=== PATIENT | female | born 1980 | race Caucasian/White ===

== ENCOUNTER 2024-02-01 20:42 | Emergency (ER) | payer OTHER, SELFPAY ==
[2024-02-01 20:50] VITALS: BP 132/92
--- NOTE | 2024-02-01 21:07 | ED.GENMED ---
History of Present Illness
General
Chief Complaint: Skin Problem
Time Seen by Provider: 02/01/24 21:01
Travel History
Have you had any contact with someone who has COVID-19?: No
Do you have any symptoms of coronavirus? Fever > 100 degrees, chills, cough, shortness of breath, sore throat, loss of taste or smell, muscle aches, or headache?: No
History of Present Illness
History of Present Illness:
43-year-old female presents to the emergency department for evaluation of multiple dog bites to the left thigh, left hand, and right forearm. She was attacked by neighbors dog. The dog is up-to-date on rabies vaccinations. Patient does not know
her last tetanus status.
Past History
Past History
ED Past Medical History: Other (Kidney stones, ITP)
ED Past Surgical History: and Urological
Social History
Tobacco: Non-smoker
Alcohol: None
Drug: None
Personal:
Living: with family
Review of Systems
Review of Systems
Allergies reviewed?: Yes
All Other Systems: ROS reviewed and negative except as documented in HPI and ROS
Phy Exam
Physical Exam
Physical Exam:
GEN: Well appearing, NAD, WDWN
HEENT: Oral mucosa moist, no scleral icterus
Cardiac: Regular rate
Lung: No respiratory distress, no tachypnea
MSK: No gross deformity or injuries
Skin: Good color, no pallor or jaundice, no rashes. Abrasion with ecchymosis to the right ulnar forearm, no bleeding. Superficial wound to the right fifth finger with no active bleeding. Multiple puncture wounds and abrasions of varying degrees
to the left anterior thigh with scant active bleeding
Neuro: AO x3, moves all extremities freely
Psych: Calm, cooperative
Course
Orders/Labs/Results
Orders:
Orders
02/01/24 21:07
Tetanus/Diphth/Acelpertussis [Adacel] 0.5 ml IM .ONCE ONE
02/01/24 21:08
Amoxicillin 875 mg/Clav 125 mg [Augmentin 875 mg/125 mg] 1 tablet PO NOW STA
Vital Signs
Initial and Last Documented VS:
Initial Vital Signs
Temp Pulse Resp BP Pulse Ox
98.3 F 78 20 132/92 99
02/01/24 20:50 02/01/24 20:50 02/01/24 20:50 02/01/24 20:50 02/01/24 20:50
Last Documented Vital Signs
Temp Pulse Resp BP Pulse Ox
98.3 F 65 20 120/74 98
02/01/24 20:50 02/01/24 21:46 02/01/24 21:46 02/01/24 21:46 02/01/24 22:02
MDM/Problems Addressed
MDM/Problems Addressed:
Wounds irrigated copiously and dressed in the emergency department. No indication for primary closure. Will treat with prophylactic antibiotics, tetanus updated
*Critical Care Note
Total Time (30-74mins, 75-104mins- exclusive of procedures): Not Applicable
ED Attending Note
-
Portions of this chart may have been created with voice recognition software.� Occasional wrong word or��sound alike� substitutions may have occurred due to the inherent limitations of voice recognition software.
Discharge Plan
Departure
Patient Disposition: Home (Routine Discharge)
Date of Disposition: 02/01/24
Time of Disposition: 21:07
Patient with high blood pressure during this ER visit?: No
Discharge Problem:
Dog bite of multiple sites
Instructions: Animal Bites ED
Prescriptions:
New
amoxicillin-pot clavulanate 875-125 mg tablet
1 tab PO BID 3 Days Qty: 6 0RF
No Action
alprazolam 0.5 MG tablet
0.5 mg PO Q6HPRN PRN (Reason: anxiety)
multivitamin with folic acid [Tab-A-Kristie] 1 TABLET tablet
1 tab PO DAILY
acetaminophen-codeine 300-30 mg Tablet
1 tab PO Q4HPRN PRN (Reason: pain) Qty: 7 0RF
Interventions
Interventions:
*Risk Screen - Suicide Last Done: 02/01/24 20:50
*General Assessment Last Done: 02/01/24 20:50
*Neglect/Abuse Screening Last Done: 02/01/24 20:50
ED- Fall Risk Assessment Last Done: 02/01/24 21:56
*ED COVID-19 Vaccine History Last Done: 02/01/24 22:02
*Nursing Disposition Last Done: 02/01/24 22:02
ED-Skin Assessment Last Done: 02/01/24 21:50
Discharge Date and Time
Discharge Date/Time: 02/01/24 22:04
Print Language: KOREAN
[2024-02-01] MEDS: ADACEL 0.5 ML IM (21:33)
[2024-02-01] MEDS: AUGMENTIN 875 MG/125 MG 1 TABLET PO (21:33)
[2024-02-01 21:46] VITALS: BP 120/74
== END 2024-02-01 22:04 | disposition home or self-care (01) ==
LOC: EMR 20:42
PROVIDERS: EMERGENCY PHYSICIAN Emergency Medicine; FAMILY PHYSICIAN Internal Medicine
DX: S71.152A Open bite, left thigh, initial encounter (principal); S71.132A Puncture wound without foreign body, left thigh, initial encounter; S50.11XA Contusion of right forearm, initial encounter; S50.811A Abrasion of right forearm, initial encounter; S70.312A Abrasion, left thigh, initial encounter; S60.946A Unspecified superficial injury of right little finger, initial encounter; W54.0XXA Bitten by dog, initial encounter; Z23 Encounter for immunization; D69.3 Immune thrombocytopenic purpura; Z87.442 Personal history of urinary calculi
CPT/HCPCS: 99283; 90471; 90715

== ENCOUNTER 2024-09-19 11:21 | Emergency (ER) | payer OTHER, SELFPAY ==
[2024-09-19 11:35] VITALS: BP 152/74
--- NOTE | 2024-09-19 11:43 | EDRN ---
Vinh PHAN in room w/pt at this time.
[2024-09-19] MEDS: ZOFRAN 4 MG IV (11:56)
[2024-09-19] MEDS: TORADOL 15 MG IV (11:58)
[2024-09-19] MEDS: TORADOL 15 MG IM (11:58)
[2024-09-19] MEDS: NSS 1000 IV (12:00)
--- NOTE | 2024-09-19 12:04 | EDRN ---
Pt attempting urine spec in BR at this time.
[2024-09-19 12:09] LABS: % Basophils 0.2 % (0-2); % Eosinophils 0.4 % (0-6); % Immature Granulocytes 0.5 % (0-0.5); % Lymphocytes 12.4 % (20.5-51.1); % Monocytes 6.9 % (1.7-9.3); % Neutrophils 79.6 % (42.2-75.2); Absolute Eosinophils 0.1 10^3/uL (0-0.7); Absolute Immature Granulocytes 0.1 10^3/uL (0-0.05); Absolute Lymphocytes 1.5 10^3/uL (1.2-3.4); Absolute Monocytes 0.9 10^3/uL (0.1-0.6); Absolute Neutrophils 9.8 10^3/uL (1.4-6.5); Hematocrit 40.6 % (37.0-47.0); Hemoglobin 13.6 g/dL (12.0-16.0); Mean Corp Hgb Conc. 33.5 g/dL (33.0-37.0); Mean Corpuscular Hgb 31.4 pg (27.0-31.0); Mean Corpuscular Volume 93.8 fL (81.0-99.0); Mean Platelet Volume 10.1 fL (7.4-10.4); Nucleated Red Blood Cells % 0 %; Platelet Count 149 10^3/uL (130-400); Red Blood Cell Count 4.33 10^6/uL (4.20-5.40); Red Cell Dist. Width 12.1 % (11.5-14.5); White Blood Cell Count 12.3 10^3/uL (4.8-10.8)
--- NOTE | 2024-09-19 12:16 | ED.GENMED ---
History of Present Illness
General
Chief Complaint: Flank Pain
Source: patient
Exam Limitations: none
Time Seen by Provider: 09/19/24 11:42
Nursing documentation reviewed up to this point in time: agreed with
History of Present Illness
History of Present Illness:
43-year-old female with history of kidney stones presents with left flank pain 05/03 that started around 9 AM today. She is nauseous but has not vomited. She denies fever or chills.
Past History
Past History
ED Past Medical History: Other (Kidney stones, ITP)
ED Past Surgical History: and Urological
Social History
Tobacco: Non-smoker
Alcohol: None
Drug: None
Personal:
Living: with family
Review of Systems
Review of Systems
Allergies reviewed?: Yes
All Other Systems: ROS reviewed and negative except as documented in HPI and ROS
Constitutional: Denies fever or chills
Respiratory: Denies trouble breathing
Cardiac: Denies chest pain
ABD/GI: Reports nausea; Denies abdominal pain, vomiting, diarrhea, bloody stools or black stools
: Reports flank pain (left); Denies dysuria, frequency or difficulty voiding
Musculoskeletal: Reports no symptoms
Skin: Reports no symptoms
Neurological: Reports no symptoms
Phy Exam
Physical Exam
Physical Exam:
GENERAL: Mild acute distress due to pain. A&Ox3.
CONSTITUTIONAL: Afebrile.
EYES: clear, conjunctivae normal
ENMT: moist mucus membranes, Pharynx nl
RESPIRATORY: Regular respirations, nonlabored, lungs clear.
CARDIOVASCULAR: Regular rate and rhythm, no murmurs, no rubs.
GI: Soft, nontender, normal BS. Left flank tender to percussion
MUSCULOSKELETAL: Moves with ease. Well perfused.
SKIN: Warm, dry, pink
PSYCH: Anxious mood and affect. Well kept, interactive and appropriate
NEUROLOGIC: Awake, alert and oriented. No focal neurological deficits
Course
Orders/Labs/Results
Orders:
Orders
09/19/24 11:44
CT Abd/pel Without Iv Or Oral Urgent
Comment:
Reason For Exam: L flank pain
0.9% Sodium Chloride 1000 ml [Nss] 1,000 ml IV BOLUS
Ketorolac [Toradol] 15 mg IM NOW STA
Ondansetron Injectable [Zofran] 4 mg IV NOW STA
Test Result ONCE
09/19/24 12:01
Complete Blood Count/With Diff Urgent
Comprehensive Metabolic Panel Urgent
HCG, Serum Qualitative Screen Urgent
09/19/24 12:13
Urinalysis Reflex To Culture Urgent
Date Specimen was Collected: 09/19/24
Time Specimen was Collected: 12:12
Urine Microscopic Reflex Cult Urgent
09/19/24 12:16
HYDROmorphone [Dilaudid] 1 mg IV NOW STA
09/19/24 12:17
HYDROmorphone [Dilaudid] 1 mg .ROUTE .STK-MED ONE
09/19/24 12:21
IV Insert/Care/Rem.- Treatment PRN
Ketorolac [Toradol] 15 mg IV NOW STA
09/19/24 14:59
Tamsulosin [Flomax] 0.4 mg PO NOW STA
09/19/24 15:14
HYDROmorphone [Dilaudid] 1 mg .ROUTE .STK-MED ONE
09/19/24 15:15
HYDROmorphone [Dilaudid] 1 mg IV NOW STA
Abnormal Lab Results
09/19/24 09/19/24
12:01 12:13
WBC 12.3 H 10^3/uL
(4.8-10.8)
MCH 31.4 H pg
(27.0-31.0)
Abs Immat Gran (auto) 0.1 H 10^3/uL
(0-0.05)
Absolute Neuts (auto) 9.8 H 10^3/uL
(1.4-6.5)
Absolute Monos (auto) 0.9 H 10^3/uL
(0.1-0.6)
Neutrophils % 79.6 H %
(42.2-75.2)
Lymphocytes % 12.4 L %
(20.5-51.1)
BUN 18 H mg/dl
(7-17)
Glucose 142 H mg/dl
(70-99)
Ur Occult Blood Reflex 1+ A
(Negative)
Leukocyte Esterase Rfl Trace A
(Negative)
Urine Bacteria (Reflex) Few A
(Negative)
09/19/24 12:01
09/19/24 12:01
Vital Signs
Initial and Last Documented VS:
Initial Vital Signs
Temp Pulse Resp BP Pulse Ox
98.3 F 76 16 152/74 98
09/19/24 11:35 09/19/24 11:35 09/19/24 11:35 09/19/24 11:35 09/19/24 11:35
Last Documented Vital Signs
Temp Pulse Resp BP Pulse Ox
98.3 F 65 16 131/60 100
09/19/24 11:35 09/19/24 16:38 09/19/24 16:38 09/19/24 16:38 09/19/24 16:38
MDM/Problems Addressed
Differential Diagnosis Includes:
Kidney/ureteral stone, UTI, pyelonephritis
MDM/Problems Addressed:
43-year-old female with history of kidney stones presents with left flank pain 05/03 that started around 9 AM today. She is nauseous but has not vomited. She denies fever or chills.
Afebrile, moderate distress due to pain
12:15 PM:
CBC: WBC 12.3
CMP Normal
HCG neg
U/A: no sign of infection.
1:30 PM:
Patient is comfortable after pain medication. Awaiting CT scan
3:00 p[address]
CAT scan abdomen pelvis radiology report read: IMPRESSION: Column of stones in the distal left ureter causing moderate left hydronephrosis and moderate hydroureter. New.
Additional tiny nonobstructing bilateral renal stones.
Small simple left ovarian cyst. New.
Hypodense hepatic lesion possibly a hemangioma. Nonurgent abdominal ultrasound recommended.
Pt states pain is worsening, now 6/10, Flomax given, re medicated.
4:45 p.m.
Pt feeling better, wants to go home
Rx for pain med and Flomax sent to her pharmacy
*Critical Care Note
Total Time (30-74mins, 75-104mins- exclusive of procedures): Not Applicable
ED Attending Note
-
Portions of this chart may have been created with voice recognition software.� Occasional wrong word or��sound alike� substitutions may have occurred due to the inherent limitations of voice recognition software.
Discharge Plan
Departure
Patient Disposition: Home (Routine Discharge)
Date of Disposition: 09/19/24
Time of Disposition: 16:42
Patient with high blood pressure during this ER visit?: No
Condition: Good
Discharge Problem:
Kidney stone
Instructions: Kidney Stones (DC), How to Strain Your Urine, Narcotic Pain Medication
Prescriptions:
New
hydrocodone-acetaminophen 5-325 mg tablet
1 tab PO Q6H PRN (Reason: Pain) Qty: 7 0RF
tamsulosin [Flomax] 0.4 mg capsule
0.4 mg PO DAILY Qty: 5 0RF
No Action
alprazolam 0.5 MG tablet
0.5 mg PO Q6HPRN PRN (Reason: anxiety)
multivitamin with folic acid [Tab-A-Kristie] 1 TABLET tablet
1 tab PO DAILY
acetaminophen-codeine 300-30 mg Tablet
1 tab PO Q4HPRN PRN (Reason: pain) Qty: 7 0RF
amoxicillin-pot clavulanate 875-125 mg tablet
1 tab PO BID 3 Days Qty: 6 0RF
Referrals:
Uli Schaefer DO [Family Provider] -
Iván Coates MD [Active] - Call in 1-3 days for appt
Activity Restrictions/Additional Instructions:
As we discussed, I sent a prescription to your pharmacy for Flomax to take daily for the next 5 days
I also sent a prescription to your pharmacy for hydrocodone which is by getting. Use ibuprofen 600 mg every 8 hours for mild to moderate pain and use the Vicodin/hydrocodone for worse pain.
Return here immediately for fever, chills, vomiting, worsening pain or feeling sicker in any way
Strain your urine
Call the urology office tomorrow and ask when they want to see you for follow-up
Interventions
Interventions:
*Risk Screen - Suicide Last Done: 09/19/24 11:35
*General Assessment Last Done: 09/19/24 12:26
*Neglect/Abuse Screening Last Done: 09/19/24 11:35
ED- Fall Risk Assessment Last Done: 09/19/24 12:26
*ED COVID-19 Vaccine History Last Done: 09/19/24 12:26
ZU-[id number]-Xykifpbems Assessment Last Done: 09/19/24 12:29
ED-Female Genitourinary Assessment Last Done: 09/19/24 12:29
Discharge Date and Time
Print Language: MONGOLIAN
[2024-09-19] MEDS: DILAUDID 1 MG IV ×2 (12:20→15:20)
[2024-09-19 12:24] LABS: Urine Albumin Trace (Neg - Trace); Urine Bilirubin Negative (Negative); Urine Character Clear (Clear); Urine Color Yellow; Urine Glucose Negative (Negative); Urine Ketone Negative (Negative); Urine Leukocyte Trace (Negative); Urine Nitrite Negative (Negative); Urine Occult Blood 1+ (Negative); Urine Specific Gravity 1.025 (<1.030); Urine Urobilinogen Negative (Neg - 1+)
[2024-09-19 12:26] VITALS: BMI 25.5
[2024-09-19 12:31] LABS: ALT (SGPT) 19 U/L (0-35); AST (SGOT) 24 U/L (14-36); Albumin 4.2 g/dl (3.5-5.0); Alkaline Phosphatase 78 U/L (38-126); Blood Urea Nitrogen 18 mg/dl (7-17); Calcium 8.9 mg/dl (8.4-10.2); Carbon Dioxide 24 mmol/L (22-30); Chloride 102 mmol/L (98-107); Estimated Creatinine Clearance 65 ml/min; Glucose 142 mg/dl (70-99); Potassium 3.6 mmol/L (3.5-5.1); Sodium 136 mmol/L (135-145); Total Bilirubin 0.4 mg/dl (0.2-1.3); Total Protein 6.6 g/dl (6.3-8.2); eGFR > 60.00
[2024-09-19 12:35] LABS: HCG, Serum Qualitative Screen Negative
[2024-09-19 12:50] VITALS: BP 109/63
[2024-09-19 12:56] LABS: Urine Bacteria Few (Negative); Urine Red Blood Cell 0-2 /HPF (0-2)
[2024-09-19 14:07] VITALS: BP 112/62
--- NOTE | 2024-09-19 14:58 | EDRN ---
Vinh PHAN in room w /pt. Pt states pain is increasing at this time. Now a 12/01.
[2024-09-19] MEDS: FLOMAX 0.4 MG PO (15:07)
--- NOTE | 2024-09-19 15:24 | EDRN ---
Pain is still slowly increasing and now 6/10 w/ I. Serena PHAN informed and dilaudid ordered and administered at this time.
[2024-09-19 16:38] VITALS: BP 131/60
--- NOTE | 2024-09-19 16:40 | EDRN ---
Pt has figured out how to get home w/family and get her car home at this time.
--- NOTE | 2024-09-19 16:42 | EDRN ---
Vinh PHAN in room w/pt at this time.
== END 2024-09-19 17:33 | disposition home or self-care (01) ==
LOC: EMR 11:21
PROVIDERS: Registered Nurse; EMERGENCY PHYSICIAN Student in an Organized Health Care Education/Training Program; FAMILY PHYSICIAN Obstetrics & Gynecology
DX: N13.2 Hydronephrosis with renal and ureteral calculous obstruction (principal)
CPT/HCPCS: 99284; 96374; 96375; 96376; 96361; 96372; 74176; 80053; 81003; 81015; 84703; 85025

== ENCOUNTER 2024-09-21 21:36 | Emergency (ER) | payer OTHER, SELFPAY ==
[2024-09-21 21:41] VITALS: BP 149/76
--- NOTE | 2024-09-21 21:49 | ED.GENMED ---
ED Provider Triage
<Crispin Reyes PA-C - Last Filed: 09/21/24 21:50>
-
Patient seen by provider in Triage?: Seen in Triage
Attestation: A medical screening examination has been initiated by a qualified medical provider. Based on the assessment performed at this time, it has been determined that an emergent medical condition may exist and the patient has been informed
that further medical evaluation and possible additional diagnostic testing may be needed.
HPI: Recent diagnosis of kidney stone on the left side. Worsening pain. Patient notes a little bit of blood in her urine today while attempting to strain. She attended her medication she was discharged with from the ER couple days ago with no
relief including her Flomax, oxycodone and Motrin. History of stones in the past. Patient appears very uncomfortable, nauseous. Will treat with dose of intramuscular Dilaudid as patient notes that she needed few rounds of different pain
medications the other day to get comfortable enough to be discharged home. Labs and ultrasound of the kidney ordered.
GENERAL: Alert , in no apparent distress
EYE: No visual abnormalities.
NECK: Trachea midline
ENT: No visible abnormalities.
LUNGS: No acute respiratory distress
NEUROLOGICAL: Alert and oriented
SKIN: Skin intact. No visible changes.
MUSCULOSKELETAL: Moving extremities normally
PSYCH: Normal and appropriate interaction.
This is a medical evaluation conducted in person to initiate diagnostic evaluation and provide initial therapeutics. Please see further documentation by the treating clinician.
History of Present Illness
<Crispin Reyes PA-C - Last Filed: 09/21/24 21:50>
General
Chief Complaint: Flank Pain
Time Seen by Provider: 09/22/24 01:01
<EMILIE Strickland - Last Filed: 09/22/24 02:24>
General
Source: patient
Exam Limitations: none
History of Present Illness
History of Present Illness:
This is a 43 year old female that comes in with c/o pain. States that she was here on Thursday and diagnosed with renal calculus. Patient has an appointment with Dr Dave on Thursday at 3:30pm. States that Thursday she had pain. Thursday she used the
Motrin and Oxycodone as directed for pain. Today when she got up she felt good. States that she took Motrin in the morning and gain at noon. States that she took the Oxycodone at 7pm as the pain was getting worse. States that this did not help.
States that her pain was going up so she came in as didn't to get up to a 10. States that right now the pain is down to a 2/10. Denies any fever, chills, chest pain, SOB, vomiting, diarrhea, dizziness, urinary burning.
Past History
<Crispin Reyes PA-C - Last Filed: 09/21/24 21:50>
Past History
ED Past Medical History: Other (Kidney stones, ITP)
ED Past Surgical History: and Urological
Social History
Tobacco: Non-smoker
Alcohol: None
Drug: None
Personal:
Living: with family
<EMILIE Strickland - Last Filed: 09/22/24 02:24>
Past History
ED Past Surgical History: Urological (Surgery as child on Urethra)
Social History
Alcohol: Occasional
Employment: Employed
Review of Systems
<EMILIE Strickland - Last Filed: 09/22/24 02:24>
Review of Systems
All Other Systems: ROS reviewed and negative except as documented in HPI and ROS
Constitutional: Reports no symptoms; Denies fever or chills
EENT: Reports no symptoms
Respiratory: Reports no symptoms; Denies cough or trouble breathing
Cardiac: Reports no symptoms; Denies chest pain
ABD/GI: Reports abdominal pain and nausea; Denies vomiting or diarrhea
: Reports no symptoms; Denies dysuria, frequency or urgency
Musculoskeletal: Reports no symptoms
Skin: Reports no symptoms
Neurological: Reports headache; Denies dizzy
Psychiatric: Reports no symptoms
Phy Exam
<EMILIE Strickland - Last Filed: 09/22/24 02:24>
General Physical Exam
General Presentation: no apparent distress
General age: appears stated age
General Skin: warm and dry
General Habitus: normal
General Mental: alert
General Hydration: dry mucous membranes
ENT Exam
ENT Exam: TM's normal, pharynx normal and neck supple
Eye Exam
Eye Exam: EOMI
Cardiovascular Exam
Cardiovascular Exam: regular rate/rhythm, no edema, no murmur and normal peripheral pulses
Pulmonary Exam
Pulmonary Exam: lungs clear, no respiratory distress, no rales, chest non tender, no crackles, no rhonchi, no wheezing and no cough
Gastrointestinal Exam
Gastrointestinal Exam: normal bowel sounds, non tender, soft, no organomegaly, no pulsatile mass and non distended
Musculoskeletal Exam
Musculoskeletal Exam: full ROM and no edema
Skin Exam
Skin Exam: normal color, warm/dry, no rash and no petechia
Psychiatric Exam
Psychiatric Exam: normal mood/affect
Course
<Crispin Reyes PA-C - Last Filed: 09/21/24 21:50>
Orders/Labs/Results
Orders:
Orders
09/21/24 21:44
HYDROmorphone [Dilaudid] 1 mg IM NOW STA
US Kidneys [US Renal Only W/O Bladder] Urgent
Comment:
Reason For Exam: known left stone, worsening pain
09/21/24 21:45
Ondansetron Orally Disint [Zofran Odt (Orally Disintegrating)] 4 mg PO NOW STA
09/21/24 21:57
Complete Blood Count/With Diff Urgent
Comprehensive Metabolic Panel Urgent
09/21/24 22:03
Urinalysis Reflex To Culture Urgent
Date Specimen was Collected: 09/21/24
Time Specimen was Collected: 21:59
Urine Microscopic Reflex Cult Urgent
09/22/24 01:14
0.9% Sodium Chloride 1000 ml [Nss] 1,000 ml IV BOLUS
Ketorolac [Toradol] 30 mg IV NOW STA
Abnormal Lab Results
09/21/24 09/21/24
21:57 22:03
RBC 3.93 L 10^6/uL
(4.20-5.40)
Hct 36.0 L %
(37.0-47.0)
MCH 31.8 H pg
(27.0-31.0)
Absolute Monos (auto) 0.8 H 10^3/uL
(0.1-0.6)
Monocytes % 9.5 H %
(1.7-9.3)
BUN 24 H mg/dl
(7-17)
Creatinine 1.2 H mg/dL
(0.6-1.0)
AST 39 H U/L
(14-36)
Total Protein 6.2 L g/dl
(6.3-8.2)
Ur Occult Blood Reflex 2+ A
(Negative)
Urine RBC 7-10 A /HPF
(0-2)
Urine Bacteria (Reflex) Few A
(Negative)
09/21/24 21:57
09/21/24 21:57
Vital Signs
Initial and Last Documented VS:
Initial Vital Signs
Temp Pulse Resp BP Pulse Ox
98.0 F 71 20 149/76 99
09/21/24 21:41 09/21/24 21:41 09/21/24 21:41 09/21/24 21:41 09/21/24 21:41
Last Documented Vital Signs
Temp Pulse Resp BP Pulse Ox
99.0 F 60 18 106/60 99
09/22/24 01:34 09/22/24 01:34 09/22/24 01:34 09/22/24 01:34 09/22/24 01:34
<EMILIE Strickland - Last Filed: 09/22/24 02:24>
Orders/Labs/Results
Orders:
Orders
09/21/24 21:44
HYDROmorphone [Dilaudid] 1 mg IM NOW STA
US Kidneys [US Renal Only W/O Bladder] Urgent
Comment:
Reason For Exam: known left stone, worsening pain
09/21/24 21:45
Ondansetron Orally Disint [Zofran Odt (Orally Disintegrating)] 4 mg PO NOW STA
09/21/24 21:57
Complete Blood Count/With Diff Urgent
Comprehensive Metabolic Panel Urgent
09/21/24 22:03
Urinalysis Reflex To Culture Urgent
Date Specimen was Collected: 09/21/24
Time Specimen was Collected: 21:59
Urine Microscopic Reflex Cult Urgent
09/22/24 01:14
0.9% Sodium Chloride 1000 ml [Nss] 1,000 ml IV BOLUS
Ketorolac [Toradol] 30 mg IV NOW STA
Abnormal Lab Results
09/21/24 09/21/24
21:57 22:03
RBC 3.93 L 10^6/uL
(4.20-5.40)
Hct 36.0 L %
(37.0-47.0)
MCH 31.8 H pg
(27.0-31.0)
Absolute Monos (auto) 0.8 H 10^3/uL
(0.1-0.6)
Monocytes % 9.5 H %
(1.7-9.3)
BUN 24 H mg/dl
(7-17)
Creatinine 1.2 H mg/dL
(0.6-1.0)
AST 39 H U/L
(14-36)
Total Protein 6.2 L g/dl
(6.3-8.2)
Ur Occult Blood Reflex 2+ A
(Negative)
Urine RBC 7-10 A /HPF
(0-2)
Urine Bacteria (Reflex) Few A
(Negative)
09/21/24 21:57
09/21/24 21:57
Dehydration, Cr very slightly elevated. AST elevation. Urine negative for infection.
Vital Signs
Initial and Last Documented VS:
Initial Vital Signs
Temp Pulse Resp BP Pulse Ox
98.0 F 71 20 149/76 99
09/21/24 21:41 09/21/24 21:41 09/21/24 21:41 09/21/24 21:41 09/21/24 21:41
Last Documented Vital Signs
Temp Pulse Resp BP Pulse Ox
99.0 F 60 18 106/60 99
09/22/24 01:34 09/22/24 01:34 09/22/24 01:34 09/22/24 01:34 09/22/24 01:34
<Uli Bullard, DO - Last Filed: 09/22/24 01:43>
Orders/Labs/Results
Orders:
Orders
09/21/24 21:44
HYDROmorphone [Dilaudid] 1 mg IM NOW STA
US Kidneys [US Renal Only W/O Bladder] Urgent
Comment:
Reason For Exam: known left stone, worsening pain
09/21/24 21:45
Ondansetron Orally Disint [Zofran Odt (Orally Disintegrating)] 4 mg PO NOW STA
09/21/24 21:57
Complete Blood Count/With Diff Urgent
Comprehensive Metabolic Panel Urgent
09/21/24 22:03
Urinalysis Reflex To Culture Urgent
Date Specimen was Collected: 09/21/24
Time Specimen was Collected: 21:59
Urine Microscopic Reflex Cult Urgent
09/22/24 01:14
0.9% Sodium Chloride 1000 ml [Nss] 1,000 ml IV BOLUS
Ketorolac [Toradol] 30 mg IV NOW STA
Abnormal Lab Results
09/21/24 09/21/24
21:57 22:03
RBC 3.93 L 10^6/uL
(4.20-5.40)
Hct 36.0 L %
(37.0-47.0)
MCH 31.8 H pg
(27.0-31.0)
Absolute Monos (auto) 0.8 H 10^3/uL
(0.1-0.6)
Monocytes % 9.5 H %
(1.7-9.3)
BUN 24 H mg/dl
(7-17)
Creatinine 1.2 H mg/dL
(0.6-1.0)
AST 39 H U/L
(14-36)
Total Protein 6.2 L g/dl
(6.3-8.2)
Ur Occult Blood Reflex 2+ A
(Negative)
Urine RBC 7-10 A /HPF
(0-2)
Urine Bacteria (Reflex) Few A
(Negative)
09/21/24 21:57
09/21/24 21:57
Vital Signs
Initial and Last Documented VS:
Initial Vital Signs
Temp Pulse Resp BP Pulse Ox
98.0 F 71 20 149/76 99
09/21/24 21:41 09/21/24 21:41 09/21/24 21:41 09/21/24 21:41 09/21/24 21:41
Last Documented Vital Signs
Temp Pulse Resp BP Pulse Ox
99.0 F 60 18 106/60 99
09/22/24 01:34 09/22/24 01:34 09/22/24 01:34 09/22/24 01:34 09/22/24 01:34
<EMILIE Strickland - Last Filed: 09/22/24 02:24>
MDM/Problems Addressed
Differential Diagnosis Includes:
Renal colic,
MDM/Problems Addressed:
This is a 43 year old female that comes in with c/o kidney stone pain. States that she did not want her pain to get up to a 10 so she came in.
Will check labs. Urine and get US.
Back into see patient. States that she is feeling better. Encouraged patient to increase her water intake to 8-8oz glasses daily. Use Tylenol 1000mg every 6 hours and Ibuprofen 600mg ever 6 hours with food for lesser pain. Patient will use oxycodone
for more severe pain. Patient to follow up with Dr. Dave on Thursday as scheduled. Return with any concerns.
Chronic conditions affecting care:
Renal calculus
Acute Exacerbation and/or Progression of Chronic Illness:
Renal calculus
<EMILIE Strickland - Last Filed: 09/22/24 02:24>
*Radiology
Radiology exam reviewed: radiology read reviewed (US-Moderate to severe left pelvicalyceal dilation, which appears similar to recent CT examination. Small shadowing echogenicities identified within the distal left ureter suggesting distal left
ureteral calculi. No evidence for right pelvicalyceal dilation. )
*Pulse Oximetry
Patient hypoxic: no
*EKG
Interpreted by ED Provider?: NA
Rate: EKG- N/A
*Filtration Operator Interpretation
Rate: Filtration Operator- N/A
*Critical Care Note
Total Time (30-74mins, 75-104mins- exclusive of procedures): Not Applicable
ED Attending Note
<Crispin Reyes PA-C - Last Filed: 09/21/24 21:50>
-
Portions of this chart may have been created with voice recognition software.� Occasional wrong word or��sound alike� substitutions may have occurred due to the inherent limitations of voice recognition software.
<Uli Bullard DO - Last Filed: 09/22/24 01:43>
ED Attending Note
Patient seen and examined by attending physician: Yes
ED Attending Note:
I reviewed and agree with history treatment plan by Molly Gomez. My exam revealed 43-year-old female in mild distress, patient with continued pain from left kidney stone, likely distal. Will treat with IV Toradol and IV fluids. No signs of UTI.
If pain can be controlled, will discharge patient to follow-up with Dr. Dave, otherwise patient may require admission if her pain persists.
Discharge Plan
Departure
Patient Disposition: Home (Routine Discharge)
Date of Disposition: 09/22/24
Time of Disposition: 02:15
Patient with high blood pressure during this ER visit?: No
Condition: Good
Covid-19: Not Applicable
Discharge Problem:
Renal colic on left side
Instructions: Renal Colic (DC)
Prescriptions:
New
oxycodone 5 mg capsule
5 mg PO Q6H PRN (Reason: Pain) Qty: 7 0RF
ondansetron 4 mg tablet,disintegrating
4 mg PO Q8H PRN (Reason: nausea and vomiting) Qty: 10 0RF
No Action
alprazolam 0.5 MG tablet
0.5 mg PO Q6HPRN PRN (Reason: anxiety)
multivitamin with folic acid [Tab-A-Kristie] 1 TABLET tablet
1 tab PO DAILY
acetaminophen-codeine 300-30 mg Tablet
1 tab PO Q4HPRN PRN (Reason: pain) Qty: 7 0RF
amoxicillin-pot clavulanate 875-125 mg tablet
1 tab PO BID 3 Days Qty: 6 0RF
hydrocodone-acetaminophen 5-325 mg tablet
1 tab PO Q6H PRN (Reason: Pain) Qty: 7 0RF
tamsulosin [Flomax] 0.4 mg capsule
0.4 mg PO DAILY Qty: 5 0RF
Referrals:
Vamsi Dave MD [Active] - 09/23/24 3:30 pm
Lio Bustillo MD [Family Provider] -
Activity Restrictions/Additional Instructions:
As discussed, Your Ultrasound shows that there is still similar appears of distal left ureteral calculi. Please increase your water intake to 8-8oz glasses daily. You can use Tylenol 1000mg every 6 hours for pain and alternate with Ibuprofen 600mg
every 6 hours with food. So if you take Tylenol at 9am you can take Ibuprofen at 12 noon and then Tylenol again at 3pm and ibuprofen at 6pm. If this doesn't control you pain you may use The oxycodone for severe pain. A prescription for the narcotic
pain medication has been sent and also a prescription for Zofran to help with any nausea, vomiting. Follow up with Dr. Dave as scheduled. IF YOU HAVE ANY FEVER, VOMITING THAT IS NOT CONTROLLED OR YOU HAVE ANY OTHER CONCERNS PLEASE RETURN TO THE
EMERGENCY ROOM.
Interventions
Interventions:
*Risk Screen - Suicide Last Done: 09/21/24 21:41
*General Assessment Last Done: 09/21/24 21:41
*Neglect/Abuse Screening Last Done: 09/21/24 21:41
*ED COVID-19 Vaccine History Last Done: 09/21/24 21:41
YD-Ijsfqk-Iqxlkmfkuz Assessment Last Done: 09/22/24 01:42
ED-Female Genitourinary Assessment Last Done: 09/22/24 01:42
Discharge Date and Time
Print Language: DANISH
[2024-09-21] MEDS: ZOFRAN ODT (ORALLY DISINTEGRATING) 4 MG PO (21:50)
[2024-09-21] MEDS: DILAUDID 1 MG IM (21:51)
[2024-09-21 22:04] LABS: % Basophils 0.2 % (0-2); % Eosinophils 0.7 % (0-6); % Immature Granulocytes 0.3 % (0-0.5); % Lymphocytes 20.7 % (20.5-51.1); % Monocytes 9.5 % (1.7-9.3); % Neutrophils 68.6 % (42.2-75.2); Absolute Eosinophils 0.1 10^3/uL (0-0.7); Absolute Lymphocytes 1.8 10^3/uL (1.2-3.4); Absolute Monocytes 0.8 10^3/uL (0.1-0.6); Hemoglobin 12.5 g/dL (12.0-16.0); Mean Corp Hgb Conc. 34.7 g/dL (33.0-37.0); Mean Corpuscular Hgb 31.8 pg (27.0-31.0); Mean Corpuscular Volume 91.6 fL (81.0-99.0); Mean Platelet Volume 9.9 fL (7.4-10.4); Nucleated Red Blood Cells % 0 %; Platelet Count 156 10^3/uL (130-400); Red Blood Cell Count 3.93 10^6/uL (4.20-5.40); Red Cell Dist. Width 12.1 % (11.5-14.5); White Blood Cell Count 8.8 10^3/uL (4.8-10.8)
[2024-09-21 22:12] LABS: Urine Albumin Negative (Neg - Trace); Urine Bilirubin Negative (Negative); Urine Character Clear (Clear); Urine Color Yellow; Urine Glucose Negative (Negative); Urine Ketone Negative (Negative); Urine Leukocyte Negative (Negative); Urine Nitrite Negative (Negative); Urine Occult Blood 2+ (Negative); Urine Specific Gravity 1.025 (<1.030); Urine Urobilinogen Negative (Neg - 1+)
[2024-09-21 22:20] LABS: ALT (SGPT) 28 U/L (0-35); AST (SGOT) 39 U/L (14-36); Albumin 3.8 g/dl (3.5-5.0); Alkaline Phosphatase 66 U/L (38-126); Blood Urea Nitrogen 24 mg/dl (7-17); Calcium 8.6 mg/dl (8.4-10.2); Carbon Dioxide 24 mmol/L (22-30); Chloride 104 mmol/L (98-107); Glucose 98 mg/dl (70-99); Potassium 4.1 mmol/L (3.5-5.1); Sodium 136 mmol/L (135-145); Total Bilirubin 0.3 mg/dl (0.2-1.3); Total Protein 6.2 g/dl (6.3-8.2); eGFR 58.32
[2024-09-21 22:20] LABS: Urine White Cell 0-2 /HPF (0-5)
[2024-09-21 22:21] LABS: Urine Bacteria Few (Negative)
[2024-09-22 01:34] VITALS: BP 106/60
[2024-09-22 01:35] VITALS: BMI 27.3
[2024-09-22] MEDS: NSS 1000 IV (01:36)
[2024-09-22] MEDS: TORADOL 30 MG IV (01:36)
[2024-09-22 02:40] VITALS: BP 104/63
== END 2024-09-22 02:48 | disposition home or self-care (01) ==
LOC: EMR 21:36
PROVIDERS: Physician Assistant Medical; EMERGENCY PHYSICIAN Emergency Medicine; FAMILY PHYSICIAN Internal Medicine
DX: N20.0 Calculus of kidney (principal)
CPT/HCPCS: 96374; 96372; 96361; 99284; 76775; 80053; 81003; 81015; 85025

== ENCOUNTER → 2024-09-26 12:03 | Outpatient (REF) | payer OTHER, SELFPAY | LOC: RAD 12:03 | PROVIDERS: ATTENDING PHYSICIAN Specialist; FAMILY PHYSICIAN Internal Medicine | DX: N20.0 Calculus of kidney (principal); N20.1 Calculus of ureter | CPT/HCPCS: 74018 ==

== ENCOUNTER → 2025-03-06 11:56 | Outpatient (REF) | payer OTHER, SELFPAY | LOC: RAD 11:56 | PROVIDERS: ATTENDING PHYSICIAN Specialist; FAMILY PHYSICIAN Internal Medicine; REFERRING PHYSICIAN Physician Assistant | DX: M25.552 Pain in left hip (principal); N20.0 Calculus of kidney | CPT/HCPCS: 73502; 74018 ==

== ENCOUNTER → 2025-03-22 18:34 | Outpatient (REF) | payer OTHER, SELFPAY | LOC: WDC 18:34 | PROVIDERS: ATTENDING PHYSICIAN Obstetrics & Gynecology Gynecology; FAMILY PHYSICIAN Internal Medicine | DX: Z12.31 Encounter for screening mammogram for malignant neoplasm of breast (principal) | CPT/HCPCS: 77063; 77067 ==

== ENCOUNTER 2025-05-16 06:15 | Day surgery (SDC) | payer OTHER, SELFPAY ==
[2025-05-16] VITALS (7 sets, daily range): BP systolic 95–112; BP diastolic 51–69; BMI 26.1
[2025-05-16] MEDS: NORMOSOL-R/PLASMALYTE-A 1000 IV (10:41)
[2025-05-16] MEDS: EMEND 40 MG PO (12:01)
== END 2025-05-16 15:50 | disposition home or self-care (01) ==
LOC: SDS 06:15
PROVIDERS: ATTENDING PHYSICIAN Specialist
DX: N20.1 Calculus of ureter (principal)
CPT/HCPCS: 52356; 74018; 76000; 82365; C2617